=== PATIENT | female | born 1955 | race Two or more races ===

== ENCOUNTER → 2018-10-21 | Outpatient (CLI) | payer OTHER ==
[~2018-10-21] MED LIST: CRESTOR20 MG PO; SYNTHROID75 MCG PO; SYNTHROID88 MCG PO
== END | disposition home or self-care (01) ==
LOC: MAMO-SONO 10-20 13:15
DX: Z12.31 Encounter for screening mammogram for malignant neoplasm of breast (principal); N63.10 Unspecified lump in the right breast, unspecified quadrant; N63.20 Unspecified lump in the left breast, unspecified quadrant

== ENCOUNTER 2022-01-02 15:14 | Emergency (ER) | payer OTHER ==
[~2022-01-02] VITALS: Ht 154.9 cm; Wt 58.5 kg
[2022-01-02] MEDS ORDERED: PREDNISONE20 MG PO (19:16)
[2022-01-02] MEDS ORDERED: ZOVIRAX400 MG PO (19:16)
== END 2022-01-02 20:08 | disposition home or self-care (01) ==
LOC: ER 15:14
DX: G51.0 Bell's palsy (principal); E78.5 Hyperlipidemia, unspecified; E03.9 Hypothyroidism, unspecified

== ENCOUNTER 2022-10-11 12:00 | Inpatient (IN) | payer OTHER ==
[~2022-10-11] VITALS: Ht 154.9 cm; Wt 59.0 kg
[~2022-10-11 12:00] MED LIST changes: +PREDNISONE20 MG PO; +ZOVIRAX400 MG PO
[2022-10-11] MEDS ORDERED: CELEBREX200MG PO (13:42)
[2022-10-11] MEDS ORDERED: CRESTOR20 MG PO (13:42)
[2022-10-11] MEDS ORDERED: SYNTHROID75 MCG PO (13:42)
[2022-10-11] MEDS ORDERED: BACLOFEN10 MG PO (13:43)
[2022-10-11] MEDS ORDERED: PROTONIX40 MG PO (13:43)
[2022-10-11] MEDS ORDERED: VITAMIN D31 ML PO (13:44)
[2022-10-11] MEDS ORDERED: MULTIVI PO (13:44)
[2022-10-16] MEDS ORDERED: MULTI VITAMIN1 EACH (08:08)
== END 2022-10-18 11:17 | disposition home or self-care (01) | DRG 331 ==
LOC: O/R 10-15 05:15 → SURH 10-15 05:15
PROVIDERS: ADMIT Colon & Rectal Surgery; ATTEND Colon & Rectal Surgery
PROC: 07BB4ZZ Excision of Mesenteric Lymphatic, Percutaneous Endoscopic Approach (ICD-10-PCS; 2022-10-15)
PROC: 3E0F7SF Introduction of Other Gas into Respiratory Tract, Via Natural or Artificial Opening (ICD-10-PCS; 2022-10-15)
PROC: 0DTF4ZZ Resection of Right Large Intestine, Percutaneous Endoscopic Approach (ICD-10-PCS; principal; 2022-10-15 09:30)
DX: C18.2 Malignant neoplasm of ascending colon (principal); R59.0 Localized enlarged lymph nodes; E03.9 Hypothyroidism, unspecified

== ENCOUNTER → 2024-09-02 | Emergency (ER) | payer OTHER ==
[~2024-09-02] VITALS: Ht 154.9 cm; Wt 58.5 kg
[~2024-09-02] MED LIST changes: +AZITHROMYCIN 500 MG TABLET PO ONE; +BACLOFEN10 MG PO; +CELEBREX200MG PO; +DEXAMETHASONE SODIUM PHOSPHATE 4 MG/ML VIAL IM ONE; +DEXAMETHASONE SODIUM PHOSPHATE 4 MG/ML VIAL ONE; +GUAIFENESIN/DEXTROMETHORPHAN 100MG/10ML BLIST.PACK PO ONE; +MULTI VITAMIN1 EACH; +MULTIVI PO; +PROTONIX40 MG PO; +TUSNEL LIQUID178 ML PO; +VITAMIN D31 ML PO; +ZITHROMAX500 MG PO; +ZYRTEC10 M3 PO
[2024-09-02 14:40] LABS: HEMATOCRIT 36.3 % (36.0-45.00); HEMOGLOBIN 12.5 g/dL (12.0-15.00); MEAN CELL VOLUME 89.9 fL (80.00-100.00); MEAN CORPUSCULAR HGB CONC 34.4 g/dl (32.0-36.0); PLATELET COUNT 217 K/uL (150-450); RED BLOOD COUNT 4.04 M/uL (4.00-6.00); RED CELL DISTRIBUTION WIDTH 14.2 % (11.5-14.5)
[2024-09-02 15:30] LABS: COVID-19 AG NEGATIVE (NEGATIVE); INFLUENZA A AG NEGATIVE (NEGATIVE)
== END | disposition home or self-care (01) ==
LOC: ER 12:42
PROVIDERS: General Practice
DX: B34.9 Viral infection, unspecified (principal); R53.81 Other malaise; Z20.822 Contact with and (suspected) exposure to COVID-19
CPT/HCPCS: 36415; 96372; 99282; J1100